=== PATIENT | male | born 1945 | race Caucasian/White ===

== ENCOUNTER → 2017-05-17 | Outpatient (CLI) | payer OTHER ==
[~2017-05-17] MED LIST: ALTACE5 M1 PO; NOHOMEMEDICATIONS; ZOFRAN ODT4 MG PO
== END ==
LOC: RAD 14:12
DX: J98.11 Atelectasis (principal); R60.9 Edema, unspecified

== ENCOUNTER → 2017-07-17 | Outpatient (CLI) | payer OTHER ==
[~2017-07-17] VITALS: Ht 172.7 cm; Wt 106.6 kg
[~2017-07-17] MED LIST changes: +DEMADEX20 MG PO; +LISINOPRIL20 MG PO; +METFORMIN HCL500 M3 PO; +POTASSIUM20 PO; +SIMVASTATIN40 MG PO
--- NOTE | ~2017-07-17 | CATHLAB ---
[facility] [address] [place] [address] INVASIVE PROCEDURE REPORT Name: BEATRIZJOSE Pete Room #: [facility]#: [id number] Admission: 07/17/17 Attend Phys: Hernandez Mcclellan, Discharge: Date of : 45 Date of Service: 07/17/17 1359 Report #: [id number] THIS REPORT FOR: //name// APPROVED REPORT Study performed: 07/17/2017 07:51:22 Patient Details Patient Status: Out-Patient Room #: The patient is a 71 year-old male Event Personnel Hernandez Mcclellan Veterinarian Laboratory Animal Care, Kia Alcantara, Perry Zhong Amber Monitor, Sheeba Armendariz RN RN, Arlet Mace RN oxidation operator Performed Art Access - R femoral artery* 83105 Initial Mod Sed Same Phys/QHP Gr5y [id number] Left Heart Cath w/or w/o Coronaries [id number] [facility] Hemostasis w/ Mynx Indication Positive stress test Procedure Narrative The patient was brought electively to the Cardiac Catheterization Laboratory and was prepped and draped in a sterile manner. The Right Groin^ was infiltrated with 1% Lidocaine subcutaneous anesthesia. A PINNACLE 6FR Sheath #[id number] sheath was inserted into the RFA^. Coronary angiography was performed using coronary diagnostic catheters. The right coronary system was accessed and visualized with a JR 4 catheter. The left coronary system was accessed and visualized with a JL 4.5 catheter. The left ventricle was accessed and visualized with a Pigtail catheter. Left ventricular/Aortic Valve gradient assessed via catheter pullback. Left ventriculogram was performed in LEONARD projection. Closure device was deployed with a 6 Fr Mynx. The patient tolerated the procedure well and there were no complications associated with the procedure. There was no hematoma. Intraoperative Conscious Sedation Sedation start time: 08:02 Case end Time: 08:22 Fentanyl 50 mcg Versed 1 mg [facility] [place] [address] INVASIVE PROCEDURE REPORT Name: JOSE HENDERSON Room #: [facility]#: [id number] Admission: 07/17/17 Attend Phys: Hernandez Mcclellan, Discharge: Date of : 45 Date of Service: 07/17/17 1359 Report #: [id number] Fluoro Time: 2.32 minutes Dose: DAP 6377.80 cGycm2 752 mGy Contrast Type and Amount: Omnipaque 135 ml Diagnostic Cath Left Main Normal left main LAD Normal left anterior descending Diagonal 1 Single, moderate size diagonal branch, angiographically normal Circumflex Large but nondominant and comprised of a single trifurcating marginal branch. OM1 Angiographically normal Right Coronary Normal right coronary R PDA Moderate sized posterior descending, angiographically normal Left Ventriculography The left ventricle is normal in size with normal contractility. The left ventricular ejection fraction is estimated to be 60-65%. Left ventricular wall motion abnormalities are not present. There is no mitral insufficiency. Hemodynamics The aortic pressure is 143/86 mmHg with a mean of 109 mmHg. The left ventricular pressure is 146/12 mmHg with a mean of mmHg. The left ventricular end diastolic pressure is 30 mmHg. Conclusion 1. Normal global and regional left ventricular systolic function. Ejection fraction 65%. No mitral insufficiency. 2. Normal left main 3. Normal coronary vasculature. Right coronary dominant circulation Recommendations Aggressive Medical Therapy <ELECTRONICALLY SIGNED> By: Hernandez Mcclellan MD, FACC 07/17/17 1359 1359 1359 Hernandez Mcclellan MD, FACC /INF
--- NOTE | ~2017-07-17 | EKG ---
[address] [address] ELECTROCARDIOGRAM REPORT Name: JOSE HENDERSON [id number] Admission: 07/17/17 Attend Phys: Hernandez Mcclellan MD, Discharge: Date of : 45 Report #: [id number] THIS REPORT FOR: //name// [facility] Test Date: 2017-07-17 Test Time: 07:14:37 Pat Name: JOSE HENDERSON Department: Room: Gender: M Co Op: : 1945 Requested By: Hernandez Mcclellan Order Number: [id number] MD: Hernandez Mcclellan Measurements Intervals [place] Rate: 55 P: 54 MA: 193 QRS: 3 QRSD: 97 T: 38 QT: 424 QTc: 406 Interpretive Statements Sinus rhythm Atrial premature complex No previous ECG available for comparison Electronically Signed On 07-17-2017 7:51:33 CDT by Hernandez Mcclellan [email or web address] <ELECTRONICALLY SIGNED> By: Hernandez Mcclellan MD, [facility] 07/17/17 0751 0714 3 Hernandez Mcclellan MD, [facility] /EPI
[2017-07-17 07:11] VITALS: BP 127/81
== END | disposition home or self-care (01) ==
LOC: CATH 06:40
DX: R94.39 Abnormal result of other cardiovascular function study (principal); I10 Essential (primary) hypertension; E78.00 Pure hypercholesterolemia, unspecified; E11.9 Type 2 diabetes mellitus without complications; Z85.828 Personal history of other malignant neoplasm of skin; Z98.49 Cataract extraction status, unspecified eye; E66.09 Other obesity due to excess calories; Z87.891 Personal history of nicotine dependence; Z79.899 Other long term (current) drug therapy; Z82.49 Family history of ischemic heart disease and other diseases of the circulatory system; Z88.8 Allergy status to other drugs, medicaments and biological substances

== ENCOUNTER → 2020-07-14 | Outpatient (CLI) | payer OTHER | LOC: SJCVC 13:02 | PROVIDERS: ATTEND Internal Medicine | DX: I11.0 Hypertensive heart disease with heart failure (principal); I50.32 Chronic diastolic (congestive) heart failure; G47.33 Obstructive sleep apnea (adult) (pediatric); E78.5 Hyperlipidemia, unspecified; C91.10 Chronic lymphocytic leukemia of B-cell type not having achieved remission; E11.9 Type 2 diabetes mellitus without complications; E78.00 Pure hypercholesterolemia, unspecified; Z79.899 Other long term (current) drug therapy; Z79.84 Long term (current) use of oral hypoglycemic drugs; Z98.890 Other specified postprocedural states; Z87.891 Personal history of nicotine dependence; Z82.49 Family history of ischemic heart disease and other diseases of the circulatory system ==

== ENCOUNTER → 2020-11-15 | Outpatient (CLI) | payer OTHER | LOC: SJCVCIMAG 11:27 | PROVIDERS: ATTEND Internal Medicine | DX: I35.8 Other nonrheumatic aortic valve disorders (principal); R00.1 Bradycardia, unspecified; I11.0 Hypertensive heart disease with heart failure; I50.32 Chronic diastolic (congestive) heart failure; E78.5 Hyperlipidemia, unspecified; E11.9 Type 2 diabetes mellitus without complications; C91.10 Chronic lymphocytic leukemia of B-cell type not having achieved remission; G47.33 Obstructive sleep apnea (adult) (pediatric); R42 Dizziness and giddiness; R55 Syncope and collapse; E78.00 Pure hypercholesterolemia, unspecified; Z82.49 Family history of ischemic heart disease and other diseases of the circulatory system; Z79.899 Other long term (current) drug therapy; Z87.891 Personal history of nicotine dependence; Z72.89 Other problems related to lifestyle ==

== ENCOUNTER → 2021-02-14 | Outpatient (CLI) | payer OTHER ==
[~2021-02-14] VITALS: Ht 172.7 cm; Wt 108.9 kg
[~2021-02-14] MED LIST changes: +DIAZEPAM 5 MG5 M1 PO; +HYDROCODON-ACE1 EAC5 PO; +NEURONTIN300 MG PO; +TORSEMIDE20 MG PO
[2021-02-14 13:22] VITALS: BP 149/77
--- NOTE | 2021-02-14 13:45 | NUR ---
Pain Clinic Assessment: 1. History of Osteoarthritis: History of Rheumatoid Arthritis: 2. Height: 5 ft. 8 in. 172.7 cm. Weight: 240.0 lb. oz. 108.864 kg. Patient's BMI: 36.5 3. Vital Signs: BP: 149/77 Pulse: 86 Resp: 16 Temp: 02 Sat: 96 ECG Mon: 4. Pain Intensity: 0 5. Fall Risk: Dizziness: Y Needs help standing or walking: N Fallen in the last 3 months: N Fall risk comments: 6. Patient on Blood Thinner: None 7. History of Hypertension: N 8. Opioid Therapy greater than 6 weeks: N Opiate Contract Signed: 9. Risk Assessment Tool Provided: MODERATE 4-7 10. Functional Assessment Tool: 11. Recreational Drug Use: Never Drug Type: Tobacco Use: Former Smoker Tobacco Type: Amount or Packs/day: How Many Years: Alcohol Use: Yes Frequency: Daily Quant: 3
== END ==
LOC: PAIN 07:40
PROVIDERS: ATTEND Anesthesiology Pain Medicine
DX: G50.0 Trigeminal neuralgia (principal); I10 Essential (primary) hypertension; E11.9 Type 2 diabetes mellitus without complications; Z87.891 Personal history of nicotine dependence

== ENCOUNTER → 2021-02-25 | Outpatient (CLI) | payer OTHER | LOC: MRI 09:27 | PROVIDERS: ATTEND Anesthesiology Pain Medicine | DX: I67.82 Cerebral ischemia (principal); G93.89 Other specified disorders of brain; J34.89 Other specified disorders of nose and nasal sinuses; G50.0 Trigeminal neuralgia; R51.9 Headache, unspecified ==